=== PATIENT | male | born 1965 | race African-American/Black ===

== ENCOUNTER 2020-11-05 03:06 | Emergency (ER) | payer SELFPAY ==
[~2020-11-05] VITALS: Ht 177.8 cm; Wt 79.4 kg
[2020-11-05 03:10] VITALS: BP 146/96
[2020-11-05] MEDS ORDERED: MORPHINE SULFATE INJ 4 MG/ML DISP.SYRIN ONE (03:24)
[2020-11-05] MEDS ORDERED: CEPHALEXIN MONOHYDRATE 500 MG CAPSULE PO ONE ×2 (03:30→03:32)
[2020-11-05] MEDS ORDERED: SULFAMETH/TRIMETH 800/160 MG 1 UDTAB TABLET PO ONE (03:30)
[2020-11-05] MEDS ORDERED: MORPHINE SULFATE INJ 2 MG/ML DISP.SYRIN IM ONE (03:30)
[2020-11-05] MEDS ORDERED: SULFAMETH/TRIMETH 800/160 MG 1 UDTAB TABLET ONE (03:32)
--- NOTE | 2020-11-05 03:35 | NUR ---
XRA Y AT BEDSIDE
[2020-11-05] MEDS ORDERED: HYDR-4209 PO (03:49)
[2020-11-05] MEDS ORDERED: SULF1TAB48 PO (03:49)
[2020-11-05] MEDS ORDERED: CEPH500T PO (03:49)
--- NOTE | 2020-11-05 03:59 | NUR ---
Patient discharged to home in stable condition. Written and verbal after care instructions given. Patient verbalizes understanding of instruction.
== END 2020-11-05 04:40 | disposition home or self-care (01) ==
LOC: ER 03:11
DX: L03.011 Cellulitis of right finger (principal)
CPT/HCPCS: 26011; 73140; 96372; 99284; J2270

== ENCOUNTER 2020-12-15 15:28 | Emergency (ER) | payer SELFPAY ==
[~2020-12-15] VITALS: Ht 170.2 cm; Wt 77.1 kg
[~2020-12-15 15:28] MED LIST: CEPH500T PO; HYDR-4209 PO; SULF1TAB48 PO
--- NOTE | 2020-12-15 15:35 | NUR ---
DROPPED OF BY A FRIEND. TO ER BED 6. PT IS ALERT, AWAKE AND ABLE TO ANSWER QUESTIONS. NOT IN RESP DISTRESS. BREATHING EVEN AND UNLABORED. PT IS COMPLAINING OF L LATERAL RIB PAIN AND R HAND 3RD DIGIT PAIN WHICH HAS BEEN GOING ON FOR YTHE PAST 3 WEEKS. PT IS NOTED DIAPHORETIC DURING ASSESSMENT, VERBALIZED THAT HE USED METH TODAY. AWAITING MD FOR [facility]
[2020-12-15 15:51] LABS: BASOPHILS # (AUTO) 0.1 /CMM (0.0-0.2); BASOPHILS % (AUTO) 0.9 % (0.0-2.0); EOSINOPHILS % (AUTO) 7.5 % (0.0-6.0); HEMATOCRIT 42 % (39-51); HEMOGLOBIN 13.5 g/dL (13.5-17.5); LYMPHOCYTES # (AUTO) 2.5 /CMM (0.8-4.8); LYMPHOCYTES % (AUTO) 42.5 % (20.0-44.0); MEAN CORPUSCULAR HGB CONC 32 g/dl (31.0-36.0); MEAN CORPUSCULAR VOLUME 90 fL (80-96); MONOCYTES # (AUTO) 0.7 /CMM (0.1-1.30); MONOCYTES % (AUTO) 11.7 % (2.0-12.0); NEUTROPHILS # (AUTO) 2.2 /CMM (1.8-8.9); NEUTROPHILS % (AUTO) 37.4 % (43.0-81.0); PLATELET COUNT (AUTO) 238 /CMM (150-450); RED BLOOD CELL COUNT(AUTO) 4.68 MIL/uL (4.5-6.0); WHITE BLOOD COUNT (AUTO) 5.8 K/uL (4.3-11.0)
[2020-12-15 15:59] LABS: CALCIUM, SERUM 8.6 mg/dL (8.5-10.1); CARBON DIOXIDE 32 mmol/L (21-32); CHLORIDE 105 mmol/L (98-107); CREATININE 1.1 mg/dL (0.6-1.3); GLUCOSE 96 mg/dL (74-106); POTASSIUM 3.7 mmol/L (3.5-5.1); SODIUM SERUM 140 mmol/L (136-145); UREA NITROGEN, BLOOD 11 mg/dL (7-18)
[2020-12-15 16:04] LABS: ALANINE AMINOTRANSFERASE 23 U/L (12-78); ALBUMIN 3.4 g/dL (3.4-5.0); ALCOHOL, BLOOD < 3 mg/dL (0-0); ALKALINE PHOSPHATASE 116 U/L (46-116); ASPARTATE AMINOTRANSFERASE 27 U/L (15-37); BILIRUBIN,DIRECT 0.2 mg/dL (0.0-0.2); BILIRUBIN,TOTAL 0.8 mg/dL (0.2-1.0); TOTAL PROTEIN, SERUM 7.9 g/dL (6.4-8.2)
[2020-12-15] MEDS: IV NS 0.9% 1,000 ML BAG IV ONE (16:18)
[2020-12-15] MEDS ORDERED: Thiamine 100 MG/ML VIAL ONE (16:19)
[2020-12-15] MEDS: Thiamine 100 MG in IV D5W 50 ML IV SCH (16:26)
--- NOTE | 2020-12-15 16:32 | NUR ---
IV LINE ESTABLISHED ON THE LEFT FAOREARM 18G, BLOOD DRAWN AND WAS SENT TO LAB. PT MEDICATED WELL
--- NOTE | 2020-12-15 19:04 | NUR ---
Patient discharged to home in stable condition. Written and verbal after care instructions given. Patient verbalizes understanding of instruction.IV removed. Catheter intact and site benign. Pressure and 4x4 applied to site. No bleeding noted. Pt ambulatory with a steady gait
[2020-12-15 19:06] VITALS: BP 124/74
== END 2020-12-15 19:07 | disposition home or self-care (01) ==
LOC: ER 15:30
DX: F19.10 Other psychoactive substance abuse, uncomplicated (principal); Z79.899 Other long term (current) drug therapy
CPT/HCPCS: 36415; 80048; 80076; 80299; 80320; 85025; 96365; 99284; J3411 ×2; J7030; J7060 ×2; G0480